=== PATIENT | female | born 1980 | race African-American/Black ===

== ENCOUNTER 2020-05-15 14:11 | Observation (INO) | payer MEDICAID ==
[~2020-05-15] VITALS: Ht 152.4 cm; Wt 83.0 kg
[2020-05-15] MEDS ORDERED: VIT1CAPS26 PO (14:59)
[2020-05-15] MEDS ORDERED: METF-416 MT (14:59)
[2020-05-15] MEDS ORDERED: SODIUM CHLORIDE 0.9% 1,000 ML IV SCH (15:51)
[2020-05-15] MEDS ORDERED: ACETAMINOPHEN 650MG/20.3ML UDC GT PRN (16:00)
[2020-05-15] MEDS ORDERED: ONDANSETRON HCL 4MG/2ML INJ IV PRN (16:00)
[2020-05-15] MEDS ORDERED: ACETAMINOPHEN 325MG TABLET PO PRN (16:00)
[2020-05-15] MEDS ORDERED: LACTATED RINGERS 1,000 ML IV SCH (16:30)
[2020-05-15] MEDS ORDERED: BLOOD SUGAR DIAGNOSTIC STRIP TEST SCH (17:00)
[2020-05-15] MEDS ORDERED: INSULIN LISPRO 100 UNITS/ML SUBCUT SCH (17:00)
[2020-05-15] MEDS ORDERED: ACETAMINOPHEN 500MG TABLET PO NR (17:00)
[2020-05-15 17:11] LABS: CLARITY URINE CLEAR (CLEAR); COLOR URINE YELLOW (YELLOW); KETONES URINE NEGATIVE (NEGATIVE); LEUKOCYTE ESTERASE URINE NEGATIVE (NEGATIVE); NITRITE URINE NEGATIVE (NEGATIVE); OCCULT BLOOD URINE NEGATIVE (NEGATIVE); PROTEIN URINE NEGATIVE (NEGATIVE); UROBILINOGEN URINE 0.2 E.U./dL (0.2-1.0)
[2020-05-15 17:20] LABS: CHLORIDE 108 mEq/L (98-107)
[2020-05-15 17:33] LABS: *AMPHETAMINES SCREEN URINE NEGATIVE (NEGATIVE); *BARBITURATES SCREEN URINE NEGATIVE (NEGATIVE); *BENZODIAZEPINES SCREEN URINE NEGATIVE (NEGATIVE)
[2020-05-15 17:34] LABS: *COCAINE SCREEN URINE NEGATIVE (NEGATIVE)
[2020-05-15 17:35] LABS: OPIATES URINE SCREEN NEGATIVE (NEGATIVE); PHENCYCLIDINE URINE SCREEN NEGATIVE (NEGATIVE)
[2020-05-15 17:37] LABS: CANNABINOID URINE SCREEN PRESUMTIVE POSITIVE (NEGATIVE)
[2020-05-15 17:43] LABS: METHADONE URINE SCREEN NEGATIVE (NEGATIVE)
[2020-05-15] MEDS ORDERED: ACETAMINOPHEN WITH CODEINE 300/30MG TABLET PO NR (18:26)
[2020-05-15 18:35] VITALS: BP 101/61
== END 2020-05-15 19:00 | disposition home or self-care (01) ==
LOC: 8 EST LDRP 14:11 → 8 EST A/PP 14:15
PROVIDERS: ADMIT Obstetrics & Gynecology; ATTEND Obstetrics & Gynecology
DX: O99.89 Other specified diseases and conditions complicating pregnancy, childbirth and the puerperium (principal); R51 Headache; Z3A.25 25 weeks gestation of pregnancy; Z79.899 Other long term (current) drug therapy
CPT/HCPCS: 36415; 76805; 80053; 80305; 81003; 82962; 83036; 96360; 96361; 99281; G0378

== ENCOUNTER 2020-08-20 07:48 | Inpatient (IN) | payer SELFPAY ==
[~2020-08-20] VITALS: Ht 152.4 cm; Wt 90.7 kg
[~2020-08-20 07:48] MED LIST: METF-416 MT; VIT1CAPS26 PO
[2020-08-20] MEDS ORDERED: LACTATED RINGERS 1,000 ML IV SCH (10:45)
[2020-08-20 11:22] LABS: BASOPHILS % 0.7 % (0.0-2.0); EOSINOPHILS % 0.2 % (0.0-5.0); HEMATOCRIT. 39.7 % (36.0-48.0); LYMPHOCYTES % 25.9 % (20.0-50.0); MEAN CORPUSCULAR HEMOGLOBIN 28.4 pg (28.0-32.0); MEAN CORPUSCULAR VOLUME 86.4 fL (81.0-99.0); MEAN PLATELET VOLUME 11.2 fl (7.4-10.4); MONOCYTES % 4.7 % (2.0-8.0); NEUTROPHILS % 68.5 % (40.0-76.0); PLATELET 167 x1000/uL (130-400); RED BLOOD CELL COUNT 4.59 mill/uL (4.2-5.4); RED CELL DISTRIBUTION WIDTH 18.3 % (11.6-14.6)
[2020-08-20] MEDS ORDERED: CITRIC ACID/SODIUM CITRATE SOLN 30ML UDC PO NR (11:30)
[2020-08-20 11:45] LABS: INR 0.9; PARTIAL THROMBOPLASTIN TIME 27.9 sec (23.4-31.0); PROTHROMBIN TIME 9.8 sec (9.6-11.0)
[2020-08-20 13:14] LABS: HEPATITIS B SURFACE ANTIGEN NEGATIVE
[2020-08-20] MEDS ORDERED: ONDANSETRON HCL 4MG/2ML INJ ONE (13:50)
[2020-08-20] MEDS ORDERED: EPHEDRINE SULFATE 50MG/ML VIAL ONE (13:50)
[2020-08-20] MEDS ORDERED: OXYTOCIN 10 UNITS/ML 1ML ONE (13:50)
[2020-08-20] MEDS ORDERED: FENTANYL CITRATE/PF 50MCG/ML 2ML VIAL ONE (13:50)
[2020-08-20] MEDS ORDERED: MORPHINE SULFATE/PF 1MG/ML 10ML AMP ONE (13:50)
[2020-08-20] MEDS ORDERED: CEFAZOLIN SODIUM 1000MG/VIAL ONE (13:50)
[2020-08-20] MEDS ORDERED: METOCLOPRAMIDE HCL 10MG/2ML VIAL ONE (18:40)
[2020-08-20] MEDS ORDERED: MIDAZOLAM HCL 2 MG/2 ML VIAL ONE (18:42)
[2020-08-20] MEDS ORDERED: DIPHENHYDRAMINE 50MG/ML VIAL ONE (18:47)
[2020-08-20] MEDS ORDERED: KETOROLAC 60MG/2ML VIAL IM ONE (18:47)
[2020-08-20] MEDS ORDERED: IBUPROFEN 400MG TABLET PO PRN (19:15)
[2020-08-20] MEDS ORDERED: HEMORRHOIDAL SUPP PR PRN (19:15)
[2020-08-20] MEDS ORDERED: LANOLIN OINT 7GM TUBE TOP PRN (19:15)
[2020-08-20] MEDS ORDERED: BISACODYL 10MG SUPP PR PRN (19:15)
[2020-08-20] MEDS ORDERED: DIPHENHYDRAMINE 25MG CAPSULE PO PRN (19:15)
[2020-08-20] MEDS ORDERED: ONDANSETRON HCL 4MG/2ML INJ IV PRN (19:15)
[2020-08-20] MEDS ORDERED: DOCUSATE SODIUM 100MG CAPSULE PO SCH (21:00)
[2020-08-20 21:30] VITALS: BP 135/75
[2020-08-20] MEDS ORDERED: DIPHENHYDRAMINE 50MG/ML VIAL IV PRN (21:45)
[2020-08-20] MEDS ORDERED: BUTORPHANOL TARTRATE 2 MG/ML VIAL IV PRN (21:45)
[2020-08-20] MEDS ORDERED: NALOXONE HCL 0.4 MG/ML 1ML VIAL IV PRN (21:45)
[2020-08-20 22:01] LABS: CLARITY URINE CLOUDY (CLEAR); COLOR URINE DARK YELLOW (YELLOW); KETONES URINE 3+ (NEGATIVE); LEUKOCYTE ESTERASE URINE TRACE (NEGATIVE); NITRITE URINE NEGATIVE (NEGATIVE); OCCULT BLOOD URINE 3+ (NEGATIVE); PROTEIN URINE 3+ (NEGATIVE); SPECIFIC GRAVITY URINE 1.034 (1.005-1.030)
[2020-08-20] MEDS: KETOROLAC 30MG/ML VIAL IV SCH (22:18)
[2020-08-20] MEDS: DEXT 5%/LR + PITOCIN 20UNITS/L 1,000 ML IV SCH (22:21)
[2020-08-20 22:26] LABS: *BARBITURATES SCREEN URINE NEGATIVE (NEGATIVE)
[2020-08-20 22:27] LABS: *COCAINE SCREEN URINE NEGATIVE (NEGATIVE); METHADONE URINE SCREEN NEGATIVE (NEGATIVE); OPIATES URINE SCREEN NEGATIVE (NEGATIVE); PHENCYCLIDINE URINE SCREEN NEGATIVE (NEGATIVE)
[2020-08-20 22:31] LABS: *AMPHETAMINES SCREEN URINE PRESUMTIVE POSITIVE (NEGATIVE); *BENZODIAZEPINES SCREEN URINE PRESUMTIVE POSITIVE (NEGATIVE); CANNABINOID URINE SCREEN PRESUMTIVE POSITIVE (NEGATIVE)
[2020-08-21] VITALS: BP 120/70
[2020-08-21] MEDS: CEFAZOLIN 2,000 MG in DEXT 5% WATER 100 ML IV SCH ×2 (02:41→12:58)
[2020-08-21 04:00] VITALS: BP 113/71
[2020-08-21] MEDS: KETOROLAC 30MG/ML VIAL IV SCH (04:25)
[2020-08-21] MEDS: METFORMIN HCL 500MG TABLET PO SCH ×2 (06:51→17:15)
[2020-08-21] MEDS: DEXT 5%/LR + PITOCIN 20UNITS/L 1,000 ML IV SCH (07:02)
[2020-08-21] MEDS ORDERED: LACTATED RINGERS 1,000 ML IV SCH (07:15)
[2020-08-21 07:25] LABS: CHLORIDE 107 mEq/L (98-107)
[2020-08-21 07:34] LABS: BASOPHILS % 0.4 % (0.0-2.0); EOSINOPHILS % 0.3 % (0.0-5.0); HEMATOCRIT. 34.4 % (36.0-48.0); HEMOGLOBIN. 11.4 g/dL (12.0-16.0); LYMPHOCYTES % 15.8 % (20.0-50.0); MEAN CORPUSCULAR HEMOGLOBIN 28.5 pg (28.0-32.0); MEAN CORPUSCULAR VOLUME 85.8 fL (81.0-99.0); MEAN PLATELET VOLUME 9.9 fl (7.4-10.4); MONOCYTES % 5.4 % (2.0-8.0); NEUTROPHILS % 78.1 % (40.0-76.0); PLATELET 128 x1000/uL (130-400); RED CELL DISTRIBUTION WIDTH 18.4 % (11.6-14.6)
[2020-08-21] MEDS ORDERED: METFORMIN HCL 500MG TABLET PO SCH (09:00)
[2020-08-21] MEDS: MAGNESIUM/ALUMINUM HYDROXIDE/SIMETHICONE 30ML UDC PO SCH ×4 (09:49→20:28)
[2020-08-21 09:50] VITALS: BP 132/79
[2020-08-21] MEDS: FERROUS SULFATE 325MG TABLET PO SCH ×3 (09:50→17:15)
[2020-08-21] MEDS: SIMETHICONE 80MG TABLET CHEW PO SCH ×4 (09:50→20:29)
[2020-08-21] MEDS: PRENATAL VIT/FE FUMARATE/FA TABLET PO SCH (09:50)
[2020-08-21] MEDS: IBUPROFEN 800MG TABLET PO PRN ×2 (12:57→20:35)
[2020-08-21 16:10] VITALS: BP 124/81
[2020-08-21] MEDS: ACETAMINOPHEN WITH CODEINE 300/30MG TABLET PO PRN (17:15)
[2020-08-21 19:30] VITALS: BP 125/63
[2020-08-22 04:00] VITALS: BP 120/72
[2020-08-22] MEDS: METFORMIN HCL 500MG TABLET PO SCH ×2 (06:01→17:35)
[2020-08-22 08:30] VITALS: BP 127/76
[2020-08-22] MEDS: ACETAMINOPHEN WITH CODEINE 300/30MG TABLET PO PRN ×2 (09:38→15:02)
[2020-08-22] MEDS: PRENATAL VIT/FE FUMARATE/FA TABLET PO SCH (09:38)
[2020-08-22] MEDS: FERROUS SULFATE 325MG TABLET PO SCH ×2 (09:40→15:03)
[2020-08-22] MEDS: IBUPROFEN 800MG TABLET PO PRN (15:02)
[2020-08-22 15:47] VITALS: BP 130/82
== END 2020-08-22 18:30 | disposition left against medical advice (07) | DRG 540 ==
LOC: OBSVTOIN 07:48 → 8 EST LDRP 07:48 → OBSVTOIN 15:30 → INTOOBSV 15:30 → 8EST 21:46
PROVIDERS: ADMIT Obstetrics & Gynecology; ATTEND Obstetrics & Gynecology
PROC: 10D00Z1 Extraction of Products of Conception, Low, Open Approach (ICD-10-PCS; principal; 2020-08-20)
DX: O77.0 Labor and delivery complicated by meconium in amniotic fluid (principal); O34.211 Maternal care for low transverse scar from previous cesarean delivery; O76 Abnormality in fetal heart rate and rhythm complicating labor and delivery; Z20.828 Contact with and (suspected) exposure to other viral communicable diseases; O24.429 Gestational diabetes mellitus in childbirth, unspecified control; Z3A.39 39 weeks gestation of pregnancy; Z37.0 Single live birth
CPT/HCPCS: 36415; 80048; 80051; 80305; 80307; 80346; 80349; 80359; 81003; 82962; 85025; 86592; 86703; 86762; 86850; 86900; 87340; 87426; 88307; 99281; G0378; J0690; J1200; J1885; J2250; J2274; J2405; J2590; J2765; J3010; J3490; J7060; J7120

== ENCOUNTER 2023-02-09 10:01 | Emergency (ER) | payer OTHER ==
[~2023-02-09] VITALS: Ht 157.5 cm; Wt 70.0 kg
[~2023-02-09 10:01] MED LIST changes: +AMOX1TAB16 MT; +LANTUSUD SUBCUT; +SULF1TAB48 MT
[2023-02-09 10:09] VITALS: BP 164/105
[2023-02-09] MEDS ORDERED: ACETAMINOPHEN 325MG TABLET PO ONE (10:30)
[2023-02-09] MEDS ORDERED: IBUPROFEN 600MG TABLET PO ONE (10:30)
[2023-02-09] MEDS ORDERED: TETANUS, DIPHTHERIA, PERTUSSIS VAC/PF 0.5ML (>10YR OLD) IM ONE (10:30)
[2023-02-09] MEDS ORDERED: IBUP-2029 MT (11:49)
[2023-02-09] MEDS ORDERED: MUPI1OIN4 TP (11:50)
== END 2023-02-09 12:22 | disposition home or self-care (01) ==
LOC: ER 10:01
DX: S40.012A Contusion of left shoulder, initial encounter (principal); S60.212A Contusion of left wrist, initial encounter; W18.30XA Fall on same level, unspecified, initial encounter; Y93.89 Activity, other specified; Y92.89 Other specified places as the place of occurrence of the external cause; Y99.8 Other external cause status
CPT/HCPCS: 73030; 73110; 73562; 90471; 90715; 99284; Z7610

== ENCOUNTER 2023-11-21 21:03 | Emergency (ER) | payer OTHER ==
[~2023-11-21] VITALS: Ht 152.4 cm; Wt 68.0 kg
[~2023-11-21 21:03] MED LIST changes: +IBUP-2029 MT; +MUPI1OIN4 TP
[2023-11-21 21:08] VITALS: TEMP 98.5; O2SAT 100
[2023-11-22 00:07] LABS: BASOPHILS % 0.9 % (0.0-2.0); EOSINOPHILS % 1.3 % (0.0-5.0); HEMATOCRIT. 37.2 % (36.0-48.0); LYMPHOCYTES % 9.8 % (20.0-50.0); MEAN CORPUSCULAR HEMOGLOBIN 28.7 pg (28.0-32.0); MEAN CORPUSCULAR HGB CONC 32.3 g/dL (31.0-37.0); MEAN CORPUSCULAR VOLUME 88.8 fL (81.0-99.0); MEAN PLATELET VOLUME 8.4 fl (7.4-10.4); MONOCYTES % 4.5 % (2.0-8.0); NEUTROPHILS % 83.5 % (40.0-76.0); PLATELET 386 x1000/uL (130-400); RED BLOOD CELL COUNT 4.19 mill/uL (4.2-5.4); RED CELL DISTRIBUTION WIDTH 15.1 % (11.6-14.6); WHITE BLOOD COUNT 7.3 x1000/uL (4.5-11.0)
[2023-11-22 02:21] LABS: CARBON DIOXIDE 29 mEq/L (21-32); CHLORIDE 101 mEq/L (98-107); POTASSIUM 4.1 mEq/L (3.5-5.1); SODIUM 135 mEq/L (136-145)
[2023-11-22 02:22] LABS: ALANINE AMINOTRANSFERASE 13 IU/L (10-49); ASPARTATE AMINOTRANSFERASE 14 IU/L (<34); BILIRUBIN TOTAL 0.3 mg/dL (0.1-1.0); CALCIUM 9.5 mg/dL (8.7-10.4); GLUCOSE 305 mg/dL (70-105); PROTEIN TOTAL 7.8 g/dL (6.0-8.3); UREA NITROGEN BLOOD 10 mg/dL (9-23)
[2023-11-22] MEDS ORDERED: METF-874 MT (02:37)
[2023-11-22 02:45] LABS: CREATININE 0.9 mg/dL (0.6-1.0)
[2023-11-22 02:51] VITALS: BP 146/83; PULSE 110; RESP 16
== END 2023-11-22 02:57 | disposition home or self-care (01) ==
LOC: ER 21:03
DX: E11.65 Type 2 diabetes mellitus with hyperglycemia (principal); Z79.899 Other long term (current) drug therapy
CPT/HCPCS: 80053; 85025; 36415; 99283; Z7610 ×2; C1893

== ENCOUNTER 2023-12-20 13:39 | Emergency (ER) | payer OTHER ==
[~2023-12-20] VITALS: Ht 167.6 cm; Wt 80.0 kg
[~2023-12-20 13:39] MED LIST changes: +METF-874 MT
[2023-12-20 13:48] VITALS: BP 131/84; PULSE 108; RESP 16; TEMP 98; O2SAT 100
== END 2023-12-20 15:09 | disposition left against medical advice (07) ==
LOC: ER 13:39
DX: M54.2 Cervicalgia (principal); K13.79 Other lesions of oral mucosa; E11.9 Type 2 diabetes mellitus without complications; Z98.890 Other specified postprocedural states; Y04.0XXA Assault by unarmed brawl or fight, initial encounter; Y93.89 Activity, other specified; Y92.89 Other specified places as the place of occurrence of the external cause; Y99.8 Other external cause status
CPT/HCPCS: 99283